=== PATIENT | female | born 2000 | race African-American/Black ===

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

== ENCOUNTER 2020-06-12 16:44 | Emergency (ER) | payer OTHER ==
[~2020-06-12] VITALS: Ht 172.7 cm; Wt 109.0 kg
[~2020-06-12 16:44] MED LIST: ETON68IM3 SQ
--- NOTE | 2020-06-12 17:50 | RAD ---
EXAM: Right shoulder, 3 views. HISTORY: Pain. COMPARISON: None. FINDINGS: 3 views of the right shoulder obtained. There is no fracture, dislocation or subluxation. IMPRESSION: No acute osseous finding. Electronically signed by: Alison Bowser MD (06/12/2020 5:48 PM) [facility]
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
== END 2020-06-12 18:48 | disposition home or self-care (01) ==
LOC: ER 16:44
DX: G89.11 Acute pain due to trauma (principal); M25.511 Pain in right shoulder; F17.200 Nicotine dependence, unspecified, uncomplicated; Z98.890 Other specified postprocedural states; Z90.89 Acquired absence of other organs; V98.8XXA Other specified transport accidents, initial encounter; Y93.89 Activity, other specified; Y92.413 State road as the place of occurrence of the external cause; Y99.8 Other external cause status
CPT/HCPCS: 73030; 99283